=== PATIENT | female | born 1965 | race Caucasian/White ===

== ENCOUNTER 2022-08-27 10:06 | Inpatient (IN) | payer BC ==
[2022-08-27] MEDS ORDERED: Ketorolac Tromethamine 30 MG/ML VIAL ONE (12:31)
[2022-08-27] MEDS ORDERED: Diazepam 10 MG/2 ML SYRINGE ONE (12:32)
[2022-08-27] MEDS ORDERED: Morphine 4 MG/ML VIAL ONE (13:53)
[2022-08-27] MEDS ORDERED: HYDROcodone/Acetaminophen 5/325 mg Tablet PO PRN (17:29)
[2022-08-27] MEDS ORDERED: Acetaminophen 325 MG TAB PO PRN (17:29)
[2022-08-27] MEDS ORDERED: Morphine 2 MG/ML VIAL SLOW IVP PRN (17:29)
[2022-08-27] MEDS ORDERED: traMADol HCl 50 MG TAB PO PRN (17:29)
[2022-08-27] MEDS ORDERED: tiZANidine HCl 4 MG TAB PO PRN (17:31)
[2022-08-27 17:41] LABS: #Eosinphils 0.2 thou/uL (0.0-0.7); #Monocytes 0.8 thou/uL (0.11-0.59); #Neutrophils 5.5 thou/uL (1.40-6.50); %Basophils 0.2 % (0.0-1.0); %Eosinophils 2.8 % (0.0-10.0); %Lymphocytes 23.1 % (21.0-51.0); %Monocytes 9.1 % (0.0-10.0); %Neutrophils 64.9 % (42.0-75.0); Hemoglobin 13.5 g/dL (12.0-16.0); Mean Corpuscular HGB CONC 36.4 g/dL (32.0-36.0); Mean Corpuscular Hemoglobin 28.6 pg (27.0-31.0); Mean Corpuscular Volume 78.4 fl (78.0-98.0); Mean Platelet Volume 7.1 fL (7.4-10.4); Platelet Count 312 10x3/uL (130-400); RBC Distribution Width 14.3 % (11.5-14.5); Red Blood Cell (RBC) Count 4.73 mill/uL (4.20-5.40); White Blood Cell (WBC) Count 8.5 10x3/uL (4.8-10.8)
[2022-08-27 18:00] LABS: ALT (SGPT) 41 U/L (8-55); AST (SGOT) 26 U/L (5-34); Albumin 4.3 g/dL (3.5-5.0); Alkaline Phosphatase 85 U/L (40-110); Anion Gap 16 mmol/L (10-20); BUN (Urea Nitrogen) 13 mg/dL (9.8-20.1); Bilirubin, Total 0.4 mg/dL (0.2-1.2); Calc. Creatinine Clearance 0 mL/min (70-130); Carbon Dioxide 24 mmol/L (22-29); Chloride 104 mmol/L (98-107); Estimated GFR 69; Globulin 3.3 g/dL (2.4-3.5); Glucose 110 mg/dL (70-105); Potassium 3.4 mmol/L (3.5-5.1); Protein, Total 7.6 g/dL (6.0-8.3); Sodium 141 mmol/L (136-145)
[2022-08-27 18:01] LABS: INR-International Normal Ratio 0.9; PTT 25.7 sec (22.9-36.1); Prothrombin Time 12.6 sec (12.0-14.7)
[2022-08-27] MEDS ORDERED: Guaifenesin DM 100-10/5 ML UDCUP PO PRN (19:29)
[2022-08-27] MEDS ORDERED: HumaLOG 300 UNITS/3 ML VIAL SC PRN ×2 (19:29)
[2022-08-27] MEDS ORDERED: Dextrose 5% in Water 1,000 ML IV PRN (19:29)
[2022-08-27] MEDS ORDERED: Ondansetron ODT 4 MG TAB PO PRN (19:29)
[2022-08-27] MEDS ORDERED: Dextrose 50% Abboject 50 ML SYRINGE SLOW IVP PRN (19:29)
[2022-08-27] MEDS ORDERED: Ondansetron PF 4 MG/2 ML Vial IVP PRN (19:29)
[2022-08-27] MEDS ORDERED: Senokot S 8.6-50 MG TAB PO PRN (19:29)
[2022-08-27] MEDS: Acetaminophen/Codeine 30-300mg Tablet PO PRN (20:39)
[2022-08-27] MEDS: Famotidine 20 MG TAB PO SCH (20:42)
[2022-08-27] MEDS: busPIRone HCl 10 MG TAB PO SCH (20:42)
[2022-08-27] MEDS: Hydroxychloroquine Sulfate 200 MG TAB PO SCH (20:42)
[2022-08-27] MEDS: Lisinopril 10 MG TAB PO SCH (20:42)
[2022-08-27] MEDS: Atorvastatin Calcium 10 MG TAB PO SCH (20:43)
[2022-08-28] MEDS: Acetaminophen/Codeine 30-300mg Tablet PO PRN (03:37)
[2022-08-28 06:07] VITALS: BMI 36.8
[2022-08-28] MEDS: metFORMIN 500 MG TAB PO SCH (08:37)
[2022-08-28] MEDS: Lisinopril 10 MG TAB PO SCH ×2 (08:44→21:10)
[2022-08-28] MEDS: busPIRone HCl 10 MG TAB PO SCH ×2 (08:44→21:08)
[2022-08-28] MEDS: Hydroxychloroquine Sulfate 200 MG TAB PO SCH (08:44)
[2022-08-28] MEDS: Hydrochlorothiazide 25 MG TAB PO SCH (08:45)
[2022-08-28] MEDS: DULoxetine 60 MG CAP PO SCH (08:45)
[2022-08-28] MEDS: Famotidine 20 MG TAB PO SCH ×2 (08:45→21:11)
[2022-08-28] MEDS ORDERED: Leflunomide 10 mg Tablet PO SCH (09:00)
[2022-08-28] MEDS ORDERED: Morphine 2 MG/ML VIAL ONE (12:56)
[2022-08-28] MEDS ORDERED: Midazolam HCl 2 mg/2 ml Vial ONE (13:34)
[2022-08-28] MEDS ORDERED: fentaNYL 50 mcg/mL 1 mL Vial ONE (13:34)
[2022-08-28] MEDS ORDERED: Vancomycin 1 GM VIAL ONE (13:54)
[2022-08-28] MEDS ORDERED: Thrombin 5000 UNITS/5 ML VIAL ONE (13:54)
[2022-08-28] MEDS ORDERED: HYDROmorphone 2 MG/ML VIAL ONE (14:00)
[2022-08-28] MEDS ORDERED: Levofloxacin 500 mg/D5W 100 ml Premix Bag ONE (14:06)
[2022-08-28] MEDS ORDERED: Clindamycin/D5W 900 mg/50 ml Premix Bag ONE (14:06)
[2022-08-28] MEDS ORDERED: PHENYLEPHRINE-NS 100 MCG/ML 10 ML SYRINGE ONE (14:35)
[2022-08-28] MEDS ORDERED: PROPOFOL 200 MG/20 ML VIAL ONE (14:35)
[2022-08-28] MEDS ORDERED: Metoclopramide HCl 10 MG/2 ML VIAL ONE (14:35)
[2022-08-28] MEDS ORDERED: Dexamethasone 20 MG/5 ML VIAL ONE (14:35)
[2022-08-28] MEDS ORDERED: Ketorolac Tromethamine 30 MG/ML VIAL ONE (14:35)
[2022-08-28] MEDS ORDERED: Lidocaine 1% PF 5 ML VIAL ONE (14:35)
[2022-08-28] MEDS ORDERED: Ondansetron PF 4 MG/2 ML Vial ONE (14:35)
[2022-08-28] MEDS ORDERED: Rocuronium Bromide 10 MG/ML (10ML VIAL) ONE (14:35)
[2022-08-28 16:28] LABS: Hemoglobin 11.5 g/dL (12.0-16.0)
[2022-08-28] MEDS ORDERED: SUGAMMADEX SODIUM 200 MG/2 ML VIAL ONE (16:36)
[2022-08-28] MEDS ORDERED: HYDROcodone/Acetaminophen 5/325 mg Tablet PO PRN (16:48)
[2022-08-28] MEDS ORDERED: traMADol HCl 50 MG TAB PO PRN (16:51)
[2022-08-28] MEDS ORDERED: Morphine 2 MG/ML VIAL SLOW IVP PRN (16:51)
[2022-08-28] MEDS ORDERED: hydrALAZINE 20 MG/ML VIAL SLOW IVP PRN (16:55)
[2022-08-28] MEDS ORDERED: Bisacodyl 5 MG TAB PO PRN (16:59)
[2022-08-28] MEDS ORDERED: Polyethylene Glycol 3350 17 GM Packet PO PRN (16:59)
[2022-08-28] MEDS: Sodium Chloride 0.9% 1,000 ML IV SCH ×2 (18:44→22:50)
[2022-08-28] MEDS: Gabapentin 300 MG CAP PO SCH (21:08)
[2022-08-28] MEDS: Atorvastatin Calcium 10 MG TAB PO SCH (21:11)
[2022-08-28] MEDS: Docusate 100 MG CAP PO SCH (21:11)
[2022-08-28] MEDS: Clindamycin/D5W 900 MG in Premix Bag 1 BAG IVPB SCH (22:42)
[2022-08-29 05:26] LABS: #Lymphocytes 0.8 thou/uL (1.20-3.40); #Monocytes 0.8 thou/uL (0.11-0.59); #Neutrophils 10.7 thou/uL (1.40-6.50); %Eosinophils 0.1 % (0.0-10.0); %Lymphocytes 6.3 % (21.0-51.0); %Monocytes 6.9 % (0.0-10.0); %Neutrophils 86.7 % (42.0-75.0); Hemoglobin 9.9 g/dL (12.0-16.0); Mean Corpuscular HGB CONC 36.1 g/dL (32.0-36.0); Mean Corpuscular Hemoglobin 28.7 pg (27.0-31.0); Mean Corpuscular Volume 79.4 fl (78.0-98.0); Mean Platelet Volume 7.1 fL (7.4-10.4); Platelet Count 284 10x3/uL (130-400); RBC Distribution Width 14.2 % (11.5-14.5); Red Blood Cell (RBC) Count 3.46 mill/uL (4.20-5.40); White Blood Cell (WBC) Count 12.3 10x3/uL (4.8-10.8)
[2022-08-29 05:57] LABS: Anion Gap 13 mmol/L (10-20); BUN (Urea Nitrogen) 12 mg/dL (9.8-20.1); Calc. Creatinine Clearance 120 mL/min (70-130); Calcium 8.3 mg/dL (7.8-10.44); Carbon Dioxide 23 mmol/L (22-29); Chloride 104 mmol/L (98-107); Estimated GFR 87; Glucose 151 mg/dL (70-105); Potassium 3.6 mmol/L (3.5-5.1); Sodium 136 mmol/L (136-145)
[2022-08-29] MEDS: Clindamycin/D5W 900 MG in Premix Bag 1 BAG IVPB SCH (06:12)
[2022-08-29] MEDS: Acetaminophen/Codeine 30-300mg Tablet PO PRN (09:14)
[2022-08-29] MEDS: Gabapentin 300 MG CAP PO SCH ×2 (09:15→14:40)
[2022-08-29] MEDS: Docusate 100 MG CAP PO SCH (09:15)
[2022-08-29] MEDS: Hydrochlorothiazide 25 MG TAB PO SCH (09:16)
[2022-08-29] MEDS: metFORMIN 500 MG TAB PO SCH (09:16)
[2022-08-29] MEDS: busPIRone HCl 10 MG TAB PO SCH (09:17)
[2022-08-29] MEDS: Lisinopril 10 MG TAB PO SCH (09:17)
[2022-08-29] MEDS: Famotidine 20 MG TAB PO SCH (09:17)
[2022-08-29] MEDS: DULoxetine 60 MG CAP PO SCH (09:17)
[2022-08-29 11:45] VITALS: BP 102/65; TEMP 97.7
== END 2022-08-29 14:50 | disposition home or self-care (01) | DRG 519 ==
LOC: ERS 10:06 → SURG A 19:10
PROVIDERS: ADMIT Hospitalist; ATTEND Hospitalist
PROC: 0SB20ZZ Excision of Lumbar Vertebral Disc, Open Approach (ICD-10-PCS; principal; 2022-08-28)
PROC: 01NB0ZZ Release Lumbar Nerve, Open Approach (ICD-10-PCS; 2022-08-28)
DX: M51.16 Intervertebral disc disorders with radiculopathy, lumbar region (principal); D84.821 Immunodeficiency due to drugs; G83.4 Cauda equina syndrome; M51.06 Intervertebral disc disorders with myelopathy, lumbar region; M48.061 Spinal stenosis, lumbar region without neurogenic claudication; E11.9 Type 2 diabetes mellitus without complications; I10 Essential (primary) hypertension; M06.9 Rheumatoid arthritis, unspecified; Z96.653 Presence of artificial knee joint, bilateral; E78.5 Hyperlipidemia, unspecified; F32.A Depression, unspecified; Z90.49 Acquired absence of other specified parts of digestive tract; Z80.8 Family history of malignant neoplasm of other organs or systems; Z85.828 Personal history of other malignant neoplasm of skin; Z98.890 Other specified postprocedural states; Z83.3 Family history of diabetes mellitus; Z82.49 Family history of ischemic heart disease and other diseases of the circulatory system
CPT/HCPCS: 36415; 36416; 71045; 72131; 72148; 80048; 80053; 85014; 85018; 85025; 85610; 85730; 93005; 96372; C1713; J1100; J1170; J1815; J1885; J1956; J2250; J2270; J2272; J2405; J2704; J2765; J3010; J3360; J3370; J3490; J7050